=== PATIENT | male | born 1930 | race Caucasian/White ===

== ENCOUNTER 2020-01-14 12:36 | Emergency (ER) | payer OTHER ==
[~2020-01-14] VITALS: Ht 182.9 cm; Wt 83.0 kg
[2020-01-14] MEDS ORDERED: OMEGA 3 1,0001 EACH (13:02)
[2020-01-14] MEDS ORDERED: BISOPROLOL-HCT1 EAC1 PO (13:03)
[2020-01-14] MEDS ORDERED: TUSNEL LIQUID178 ML PO (14:51)
[2020-01-14] MEDS ORDERED: ZITHROMAX500 MG PO (14:51)
== END 2020-01-14 14:55 | disposition home or self-care (01) ==
LOC: ER 12:36
DX: J06.9 Acute upper respiratory infection, unspecified (principal)